=== PATIENT | male | born 1970 | race Caucasian/White ===

== ENCOUNTER 2023-12-04 19:46 | Emergency (ER) | payer OTHER ==
[~2023-12-04] VITALS: Ht 177.8 cm; Wt 90.0 kg
[~2023-12-04 19:46] MED LIST: AMBIEN5 MG PO; AMLODIPINE BESY10 MG PO; ASPIRIN ADULT L81 MG PO; FENOFIBRATE160 MG PO; FLEXERIL OR; FLUOXETINE10 M2 PO; FLUZONE SPLT1 M1 IM; FORTAMET1000 MG PO; GABAPENTIN400 M2 PO; HYZAAR1 TA1 PO; LABETALOL HYDR200 MG PO; LOPID600 MG PO; LORTAB 5-325 MG1 TAB PO; MEDDOSEPAK PO; MULTIVITAMI9 PO; NAPROSYN500 MG OR; NO HOME MEDS; NORCO1 TA1 PO; TRULICITY0.75 MG/0.; ZOLOFT25 MG PO
[2023-12-04 19:54] VITALS: BP 176/103
[2023-12-04 20:01] VITALS: BP 178/99
[2023-12-04] MEDS ORDERED: NEOMYCIN-BACITRACIN-POLYMYXIN 0.5 GM/PAK PAK TOP STA (20:08)
[2023-12-04] MEDS ORDERED: AMOXICILLIN & POT CLAVULANATE 875 MG/TAB PO ONE (20:10)
[2023-12-04] MEDS ORDERED: HYDROcodone 5 MG/Acetaminophen 325 MG/COMBO PO ONE (20:10)
[2023-12-04] MEDS ORDERED: IBUPROFEN 800 MG/TAB PO ONE (20:10)
[2023-12-04] MEDS ORDERED: Diph, Acellular Pertussis, Tet 0.5 ML/VIAL (Tdap) SDV IM ONE (20:10)
[2023-12-04] MEDS ORDERED: AMOX/K CLAV875 M1 PO ×2 (20:14→20:28)
[2023-12-04] MEDS ORDERED: LORTAB 5/3255 MG PO (20:14)
[2023-12-04] MEDS ORDERED: MOTRIN800 MG PO ×2 (20:14→20:28)
[2023-12-04 20:16] VITALS: BP 169/94
[2023-12-04 20:31] VITALS: BP 162/91
[2023-12-04 20:46] VITALS: BP 167/98
[2023-12-04 21:15] VITALS: BP 167/98
== END 2023-12-04 21:15 | disposition home or self-care (01) | DRG 605 ==
LOC: ED 19:46
PROC: 0HQKXZZ Repair Right Lower Leg Skin, External Approach (ICD-10-PCS; principal; 2023-12-04)
DX: S81.851A Open bite, right lower leg, initial encounter (principal); S71.152A Open bite, left thigh, initial encounter; I10 Essential (primary) hypertension; W54.0XXA Bitten by dog, initial encounter; Y92.410 Unspecified street and highway as the place of occurrence of the external cause